=== PATIENT | female | born 1955 | race Caucasian/White ===

== ENCOUNTER → 2016-09-15 | Outpatient (CLI) | payer OTHER | LOC: BHSO 09:34 | DX: F41.1 Generalized anxiety disorder (principal) ==

== ENCOUNTER → 2017-05-04 | Outpatient (CLI) | payer OTHER | LOC: BHSO 14:41 | DX: F43.10 Post-traumatic stress disorder, unspecified (principal) | CPT/HCPCS: G0463 ==

== ENCOUNTER → 2017-07-17 | Outpatient (CLI) | payer MEDICARE | LOC: BHSO 08:12 | DX: F41.1 Generalized anxiety disorder (principal) | CPT/HCPCS: G0463 ==